=== PATIENT | female | born 1990 | race Caucasian/White ===

== ENCOUNTER 2017-11-26 17:55 | Emergency (ER) | payer OTHER, BC ==
[~2017-11-26] VITALS: Ht 180.3 cm; Wt 127.0 kg
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
[2017-11-26] MEDS ORDERED: CYCL-331 PO (18:17)
[2017-11-26] MEDS ORDERED: HYDR-79 PO (18:17)
[2017-11-26] MEDS ORDERED: ORPHENADRINE CITRATE 60 MG/2 ML VIAL. IM ONE (18:30)
[2017-11-26] MEDS ORDERED: MORPHINE SULFATE 10 MG/ML SYRINGE. SQ ONE (18:30)
[2017-11-26 18:57] LABS: BACTERIA,URINE MOD /HPF (0-FEW); BILIRUBIN,URINE NEG (NEG); CLARITY,URINE CLOUDY; COLOR,URINE YELLOW; GLUCOSE,URINE NEG (NEG); NITRITE,URINE NEG (NEG); SQUAMOUS EPITHELIAL CELL,UR MANY /LPF; UROBILINOGEN,URINE 0.2 mg/dL (0.2 mg/dL)
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
[2017-11-26] MEDS ORDERED: SULF1TAB24 PO (19:03)
[2017-11-26] MEDS ORDERED: SMZ/TMP 800/160MG TABLET. PO ONE ×3 (19:08→19:15)
[2017-11-26] MEDS ORDERED: FLUC100T7 PO (19:11)
[2017-11-26 19:15] VITALS: BP 156/84
== END 2017-11-26 19:25 | disposition home or self-care (01) ==
LOC: ER 17:55
DX: S13.4XXA Sprain of ligaments of cervical spine, initial encounter (principal); Z88.5 Allergy status to narcotic agent; Z91.040 Latex allergy status; V43.92XA Unspecified car occupant injured in collision with other type car in traffic accident, initial encounter; Y93.89 Activity, other specified; Y92.89 Other specified places as the place of occurrence of the external cause; Y99.8 Other external cause status
CPT/HCPCS: 72125; 81001; 81025; 87086; 96372; 99285; J2270; J2360